=== PATIENT | male | born 1990 | race Caucasian/White ===

== ENCOUNTER → 2018-12-19 11:29 | Outpatient (CLI) | payer OTHER, SELFPAY ==
[2018-12-22 18:36] LABS: Levetiracetam (Keppra) 6.3 ug/mL (10.0-40.0)
== END ==
PROVIDERS: Visit Provider Nurse Practitioner Family
DX: G40.909 Epilepsy, unspecified, not intractable, without status epilepticus (principal)
CPT/HCPCS: 36415; 80177

== ENCOUNTER 2021-02-28 11:16 | Emergency (ER) | payer MEDICAID, SELFPAY ==
[2021-02-28 12:00] VITALS: BP 131/86; PULSE 74; RESP 18; TEMP 37; O2SAT 98; BMI 32.8
--- NOTE | 2021-02-28 12:16 | XR_ITS ---
PROCEDURE: XR KNEE LT 3V CLINICAL INDICATION: PAIN COMPARISON: No exams were available for comparison FINDINGS: No fracture or dislocation. No lytic or blastic change. There is normal mineralization. The joint spaces are well-preserved. No significant degenerative/arthritic changes. No erosive changes evident. Other findings:Increased density is noted in the suprapatellar and infrapatellar region consistent with moderate size knee joint effusion IMPRESSION: Knee joint effusion otherwise negative Dictated by: Jose Yu MD 02/28/2021 12:28 Jose Yu MD in [place] 02/28/2021 12:28
--- NOTE | 2021-02-28 12:36 | HMH.EDUTC ---
[facility] [place] Disposition Clinical Impression: Knee joint effusion Qualifiers: Laterality: left Qualified Code(s): M25.462 - Effusion, left knee Disposition: Home, Self-Care Condition on Discharge: Good Instructions: How to Use Crutches, How to Apply an Ronny Wrap Additional Instructions: *weight bearing as tolerated *RICE, Rest the extremity, Ice 15-20 minutes 3-4 times daily, Compress- wear the ronny wrap as discussed as much as possible to help reduce swelling and pain, Elevate the extremity when at rest *Ronny wrap is for support and help control swelling, use it except in the shower. Be sure that is not to tight but not to loose either *Elevate when resting *Ibuprofen as prescribed as needed for pain an inflammation. If need something more can take Tylenol in between doses of Ibuprofen to help Immediately follow up with your family doctor for new or worsening of symptoms, or no noticeable improvement over the next 3-5 days Prescriptions: Ibuprofen [Ibuprofen 800mg Tablet] 800 mg PO Q8HP PRN #20 tab PRN Reason: Moderate Pain Transmission Status: Received by [facility] Icera predniSONE [Prednisone 5mg Tab Dose-Pack] 5 mg PO UD DOSE PK 6 Days #21 tab Transmission Status: Received by [facility] Referrals: Issac Worthy MD [Primary Care Provider] - As needed Brandyn Rivera MD [Staff Physician] - (call office for appointment) Time of Disposition: 12:51 Medical Decision Making - Tu Inquiry Pt receiving controlled substance: No Tu was queried for this patient: No Vital Signs: 02/28/21 12:00 02/28/21 12:56 Temperature 98.6 F 98.6 F Temperature Source Oral Pulse Rate 74 Pulse Rate [Right Brachial] 74 Respiratory Rate 18 18 Blood Pressure 131/86 Blood Pressure [Right Arm] 131/86 Blood Pressure Mean [Right Arm] 101 Blood Pressure Source [Right Arm] Automatic Cuff Blood Pressure Position [Right Arm] Sitting 02 Sat by Pulse Oximetry 98 Oxygen Delivery Method Room Air - Radiology Data #1 Image(s): Knee Image Reviewed: Yes I have reviewed radiologist's interpretation Knee joint effusion otherwise negative [facility] [place] HPI - General Stated complaint: lt knee swollen Time Seen by Provider: 02/28/21 12:47 Mode of Arrival: Ambulatory Source of Information: Patient Limitations: No Limitations Description of Symptoms (Recalled from Triage Doc. by RN): PATIENT C/O SWELLING AND PAIN TO LEFT KNEE X 2 WEEKS HEENT Symptoms (Recalled from RN notes): No Resp Symptoms (Recalled from RN notes): No Skin Symptoms (Recalled from RN notes): No MS Symptoms (Recalled from RN notes): Yes Functional Status (Recalled from RN notes): WNL - History of Present Illness Provider Complaint: Patient states that he has been having swelling and pain on and off for the last month in his left knee States that it swelled up then went down and was ok but for the last few days it has been swollen and hurts when he walks on it or tries to bend it so he came in thinking he may have fluid on it Denies known injury - Related Data Home Medications Medication Instructions Recorded Confirmed levETIRAcetam [Levetiracetam] 500 mg PO DAILY 02/28/21 02/28/21 Previous Rx's Medication Instructions Recorded Ibuprofen [Ibuprofen 800mg 800 mg PO Q8HP PRN #20 tab 02/28/21 Tablet] predniSONE [Prednisone 5mg Tab 5 mg PO UD DOSE PK 6 Days #21 tab 02/28/21 Dose-Pack] Allergies Allergy/AdvReac Type Severity Reaction Status Date / Time amoxicillin [AMOXICILLIN] Allergy Intermediate I-HIVES Verified 03/17/19 14:09 phenytoin [From DILANTIN] Allergy Intermediate I-HIVES Verified 03/17/19 14:09 - Worker's Comp Is this a Worker's Comp case?: No [facility] History - Hepatitis A Screen Drug use history?: No High risk sexual behaviors?: No History of sexually transmitted infection?: No Currently employed?: No Childcare worker?: No Do you have indoor plumbing?: Yes Do you have electricity?: Yes Attestation s
[2021-02-28 12:56] VITALS: BP 131/86; PULSE 74; RESP 18; TEMP 37; O2SAT 98
== END 2021-02-28 13:10 | disposition home or self-care (01) ==
PROVIDERS: Emergency Provider Nurse Practitioner; PCP Emergency Medicine
DX: M25.462 Effusion, left knee (principal)
CPT/HCPCS: 73562; 99202; G0463

== ENCOUNTER 2021-03-04 15:35 | Outpatient (RCR) | payer MEDICAID, SELFPAY | END 2021-03-04 16:19 | disposition home or self-care (01) | LOC: PT 15:35 | PROVIDERS: Visit Provider Orthopaedic Surgery | DX: M25.462 Effusion, left knee (principal); S83.512A Sprain of anterior cruciate ligament of left knee, initial encounter | CPT/HCPCS: 97760 ==

== ENCOUNTER → 2021-03-18 10:30 | Outpatient (CLI) | payer MEDICAID, SELFPAY ==
--- NOTE | 2021-03-18 10:30 | MR_ITS ---
PROCEDURE INFORMATION: Exam: MR Left Lower Extremity Joint Without Contrast, Knee Exam date and time: 03/18/2021 10:30 AM Age: 30 years old Clinical indication: Left; Patient HX: Lt knee pain and edema, PT states he May have fell bu he doesn't remember for sure. TECHNIQUE: Imaging protocol: MR of the Left lower extremity joint without contrast. Exam focused on the knee. COMPARISON: CR XR KNEE LT 3V 02/28/2021 12:16 PM FINDINGS: Limitations: Motion artifact. Bones and cartilage: There is mild lateral subluxation of the patella. 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 There is no acute fracture or dislocation. No aggressive bone lesions are present. Joint spaces: A markedly large joint effusion involves the knee. Medial meniscus: The medial meniscus shows no evidence of tear. Lateral meniscus: A horizontal tear involves the body of the lateral meniscus extending to the inferior meniscal surface. Anterior cruciate ligament: The anterior cruciate ligament is intact. Posterior cruciate ligament: The posterior cruciate ligament is intact. Medial capsule and supporting structures: Edema is present around the medial collateral ligament, consistent with a low-grade sprain (grade I injury). Lateral capsule and supporting structures: The lateral collateral ligament complex is intact. The popliteus tendon is intact. Extensor mechanism of knee: No tear. Variable signal involving the extensor mechanism on the sagittal sequence is likely due to magic angle artifact. Muscles: Unremarkable. Soft tissues: Soft tissue edema surrounds the medial collateral ligament. IMPRESSION: 1. Horizontal tear of the lateral meniscus body. 2. Sprain of the medial collateral ligament (grade I injury). 3. Markedly large knee joint effusion.
== END ==
PROVIDERS: PCP Emergency Medicine; Visit Provider Orthopaedic Surgery
DX: S83.512A Sprain of anterior cruciate ligament of left knee, initial encounter (principal); M25.462 Effusion, left knee
CPT/HCPCS: 73721

== ENCOUNTER 2021-03-25 15:02 | Outpatient (RCR) | payer MEDICAID, SELFPAY | END 2021-03-25 16:00 | disposition home or self-care (01) | LOC: PT 15:02 | PROVIDERS: Visit Provider Orthopaedic Surgery | DX: M25.562 Pain in left knee (principal); M25.462 Effusion, left knee ==

== ENCOUNTER 2021-04-05 10:30 | Outpatient (RCR) | payer MEDICAID, SELFPAY ==
--- NOTE | 2021-04-01 14:38 | HMH.PTOPEV ---
PT Outpatient Evaluation Rehab PT Outpatient Evaluation Start: 04/01/21 14:25 Freq: Status: Active Protocol: Document 04/01/21 14:26 KENDELL (Rec: 04/01/21 14:37 KENDELL [id number]) Electronically Signed By Marciano Delarosa, PT 04/01/21 14:26 Outpatient Therapy Subjective History Subjective History Patient is a 30 year old male presenting to outpatient PT with reports of L knee pain starting approximately 2 months ago of insidious onset. Patient experienced a fall approx 1.5 months ago resulting in moderate swelling /effusion. Most recent imaging indicates lateral meniscus tear, grade 1 MCL sprain and moderate joint effusion. No other comorbidities to report. Chief Complaint Pain,Stiff,Clicks,Swelling Symptom Type Ache,Sharp Symptoms Relieved By Rest/Positioning,Ice,OTC Meds Symptoms Aggravated By Standing,Physical Activity, Walking Prior Functional Limitations None Current Functional Limitations Housework,Standing,Squatting, Recreation Activity,Walking, Stairs,Balance Symptom Description Intermittent Level of pain today (0-10) 0 Pain scale - at its best (0-10) 0 Pain scale - at its worst (0-10) 4 Hip/Knee Eval Gait Observation General Gait Pattern Observation Antalgic Gait,Decrease Weight Bear (L) Assistive Device Assistive Devices Axillary Crutches Palpation Tenderness left Knee Palpation Finding Tenderness Knee Palpation Overall Comment L medial joint line 2/4 MMT Hip Flexion Strength Grade 5 Normal Hip Abduction Strength Grade 4 Good Hip Adduction Strength Grade 4 Good Hip Extension Strength Grade 4 Good Gluteus Fam Strength Grade 4 Good Hip External Rotation Strength Grade 4 Good Hip Internal Rotation Strength Grade 4 Good Knee Extension Strength Grade 4 Good Knee Flexion Strength Grade 5 Normal ROM Hip ROM Reason Not Measured Within Functional Limits Knee Extension Active Range of Motion ( 0 degrees) Knee Flexion Active Range of Motion ( 122 degrees) Special Tests Knee Anterior Drawer Test Negative Left Knee Anterior Anil Test Negative Left Knee Pivot Shift Test Negative Left Knee Valgus Stress Test Negative Left Knee Varus Stress Test
== END 2021-04-05 10:35 | disposition home or self-care (01) ==
LOC: PT 10:30
PROVIDERS: PCP Emergency Medicine; Visit Provider Orthopaedic Surgery
DX: M25.562 Pain in left knee (principal); M25.462 Effusion, left knee
CPT/HCPCS: 97110; 97163

== ENCOUNTER → 2021-12-27 07:09 | Outpatient (CLI) | payer MEDICAID, SELFPAY ==
[2021-12-27 20:08] LABS: Alanine Aminotransferase 29 U/L (12-78); Albumin Level 4.6 g/dl (3.5-5.0); Albumin/Globulin Ratio 1.5 (1.1-1.8); Alkaline Phosphatase 88 U/L (38-126); Anion Gap 11.4 mEq/L (5-15); Aspartate Amino Transferase 38 U/L (17-59); Bilirubin,Total 0.4 mg/dl (0.2-1.3); Calcium 9.9 mg/dl (8.4-10.2); Carbon Dioxide 27 mmol/L (22.0-30.0); Chloride 108 mmol/L (98-107); Chol/HDL Ratio 3.1 (1-3.5); Cholesterol 219 mg/dl (140-200); Glucose 105 mg/dl (74-100); HDL Cholesterol 71 mg/dl (40-60); Potassium 4.4 mmoL/L (3.5-5.1); Sodium 142 mmol/L (136-145); Total Protein,Serum 7.6 g/dl (6.3-8.2); Triglycerides 86 mg/dl (30-150); VLDL Cholesterol 17 mg/dL (0-40)
[2021-12-27 20:22] LABS: Basophils # 0.2 K/mm3 (0-0.2); Basophils % 2.2 % (0.1-2.0); Eosinophils # 0.6 K/mm3 (0.0-0.4); Eosinophils % 7.7 % (0.1-12.0); Hematocrit 49.4 % (42.0-52.0); Hemoglobin 15.7 g/dL (14.1-18.0); Lymphocytes # 1.9 K/mm3 (0.7-4.5); Lymphocytes % 24.9 % (10-50); Mean Corpuscular HGB Conc 31.8 g/dL (31.8-35.4); Mean Corpuscular Hemoglobin 30.4 pg (27.0-31.2); Mean Corpuscular Volume 95.5 fl (80-94); Mean Platelet Volume 9.1 fl (7.4-10.4); Monocytes # 0.5 K/mm3 (0.1-1.0); Neutrophils # 4.4 K/mm3 (1.8-7.8); Neutrophils % 58.2 % (37.0-80.0); Platelet Count 344 K/mm3 (142-424); Red Blood Count 5.17 M/mm3 (4.60-6.20); Red Cell Distribution Width 13.1 % (11.5-17.5); White Blood Count 7.6 K/mm3 (4.8-10.8)
[2021-12-27 20:33] LABS: 25-OH Vitamin D, Total 64.6 ng/mL (30-100)
[2021-12-27 20:38] LABS: Thyroid Stimulating Hormone 0.55 uIU/mL (0.465-4.68)
[2021-12-28 16:37] LABS: Blood Urea Nitrogen 9 mg/dl (9-20); Estimated Glomerular Filt Rate 114 ml/min (>60); GFR (African American) 137 ML/MIN (>60)
[2021-12-29 10:09] LABS: Direct LDL Cholesterol 128 mg/dL (100-129)
[2022-01-02 23:07] LABS: Levetiracetam (Keppra) 10.1 ug/mL (10.0-40.0)
== END ==
PROVIDERS: PCP Physician Assistant; Visit Provider Physician Assistant
DX: R56.9 Unspecified convulsions (principal); E66.9 Obesity, unspecified; Z68.32 Body mass index [BMI] 32.0-32.9, adult
CPT/HCPCS: 80053; 80061; 80177; 82306; 84443; 85025

== ENCOUNTER → 2023-02-23 09:46 | Outpatient (CLI) | payer MEDICAID, SELFPAY ==
[2023-02-23 19:08] LABS: Basophils % 0.4 % (0.1-2.0); Eosinophils # 0.7 K/mm3 (0.0-0.4); Eosinophils % 9.8 % (0.1-12.0); Hematocrit 47.9 % (42.0-52.0); Hemoglobin 15.8 g/dL (14.1-18.0); Lymphocytes % 29.4 % (10-50); Mean Corpuscular HGB Conc 33.1 g/dL (31.8-35.4); Mean Corpuscular Hemoglobin 31.3 pg (27.0-31.2); Mean Corpuscular Volume 94.7 fl (80-94); Mean Platelet Volume 8.3 fl (7.4-10.4); Monocytes # 0.5 K/mm3 (0.1-1.0); Monocytes % 8.1 % (1.7-9.3); Neutrophils # 3.5 K/mm3 (1.8-7.8); Neutrophils % 52.3 % (37.0-80.0); Platelet Count 303 K/mm3 (142-424); Red Blood Count 5.06 M/mm3 (4.60-6.20); Red Cell Distribution Width 12.6 % (11.5-17.5); White Blood Count 6.7 K/mm3 (4.8-10.8)
[2023-02-23 19:18] LABS: Alanine Aminotransferase 23 U/L (12-78); Albumin Level 4.8 g/dl (3.5-5.0); Albumin/Globulin Ratio 1.5 (1.1-1.8); Alkaline Phosphatase 72 U/L (38-126); Anion Gap 11.4 mEq/L (5-15); Aspartate Amino Transferase 32 U/L (17-59); Bilirubin,Total 0.7 mg/dl (0.2-1.3); Blood Urea Nitrogen 11 mg/dl (9-20); Calcium 9.8 mg/dl (8.4-10.2); Carbon Dioxide 26 mmol/L (22.0-30.0); Chloride 107 mmol/L (98-107); Chol/HDL Ratio 2.2 (1-3.5); Cholesterol 201 mg/dl (140-200); Estimated Glomerular Filt Rate 113 ml/min (>60); GFR (African American) 136 ML/MIN (>60); Globulin 3.3 g/dL (1.3-3.2); Glucose 109 mg/dl (74-100); HDL Cholesterol 91 mg/dl (40-60); Potassium 4.4 mmoL/L (3.5-5.1); Sodium 140 mmol/L (136-145); Total Protein,Serum 8.1 g/dl (6.3-8.2); Triglycerides 55 mg/dl (30-150); VLDL Cholesterol 11 mg/dL (0-40)
[2023-02-23 19:29] LABS: Direct LDL Cholesterol 86.38 mg/dL (100-129)
[2023-02-23 19:51] LABS: Thyroid Stimulating Hormone 0.41 uIU/mL (0.465-4.68)
== END ==
PROVIDERS: PCP Nurse Practitioner Family; Visit Provider Nurse Practitioner Family
DX: G40.909 Epilepsy, unspecified, not intractable, without status epilepticus (principal)
CPT/HCPCS: 80053; 80061; 80177; 84443; 85025

== ENCOUNTER → 2023-03-16 13:37 | Outpatient (CLI) | payer MEDICAID, SELFPAY | PROVIDERS: PCP Nurse Practitioner Family; Visit Provider Nurse Practitioner Family | DX: R06.02 Shortness of breath (principal) | CPT/HCPCS: 94060; 94618 ==